=== PATIENT | female | born 1950 | race Two or more races ===

== ENCOUNTER 2017-01-03 20:01 | Inpatient (IN) | payer MEDICARE, MEDICAID ==
[~2017-01-03] VITALS: Ht 149.9 cm; Wt 64.4 kg
[2017-01-03] MEDS ORDERED: ATORVASTATIN CA40 MG ORAL (22:00)
[2017-01-03] MEDS ORDERED: RENA-VITE TABL0.8 M1 PO (22:00)
[2017-01-03] MEDS ORDERED: CALCIUM ACETAT667 MG PO (22:00)
[2017-01-03] MEDS ORDERED: FUROSEMIDE80 M1 ORAL (22:00)
[2017-01-03] MEDS ORDERED: METOPROLOL TART25 MG ORAL (22:00)
[2017-01-03] MEDS ORDERED: AMLODIPINE BESYL5 MG ORAL (22:00)
[2017-01-03] MEDS ORDERED: LISINOPRIL10 MG ORAL (22:00)
[2017-01-03] MEDS ORDERED: FERROUS SULFAT325 MG ORAL (22:00)
[2017-01-03] MEDS ORDERED: ACETAMINOPHEN-1 EAC1 ORAL (22:00)
[2017-01-03 22:05] VITALS: BP 100/47
[2017-01-03 22:09] LABS: MEAN CORPUSCULAR HEMOGLOBIN 30.4 PG (27.0-31.0); MEAN CORPUSCULAR HGB CONC 35.1 G/DL (32.0-36.0); MEAN CORPUSCULAR VOLUME 87 FL (80-99); MEAN PLATELET VOLUME 6.7 FL (6.5-10.1); PLATELET COUNT 322 K/UL (150-450); RED BLOOD COUNT 2.44 M/UL (4.20-5.40); RED CELL DISTRIBUTION WIDTH 15.3 % (11.6-14.8)
[2017-01-03 22:21] LABS: INR 1.1 (0.9-1.1); TROPONIN I < 0.30 ng/mL (<=0.30)
[2017-01-03 22:21] LABS: APPEARANCE,URINE CLOUDY; KETONES,URINE NEGATIVE (NEGATIVE); LEUKOCYTE ESTERASE ,URINE 3+ (NEGATIVE); NITRITE,URINE NEGATIVE (NEGATIVE); PH,URINE 8 (4.5-8.0); PROTEIN,URINE 3+ (NEGATIVE); UROBILINOGEN,URINE NORMAL MG/DL (0.0-1.0)
[2017-01-03 22:24] LABS: ALBUMIN/GLOBULIN RATIO 0.6 (1.0-2.7); CALCIUM 8.1 mg/dL (8.6-10.2); GLOMERULAR FILTRATION RATE 3.1 mL/min (>60); POTASSIUM 3.8 mEQ/L (3.4-4.9); TOTAL PROTEIN 5.8 g/dL (6.6-8.7)
[2017-01-03] MEDS ORDERED: Piperacillin/Tazobactam 3.375 GM in NS 110 ML IVPB ONE (22:30)
[2017-01-03 22:33] LABS: RBC,URINE 0-2 /HPF (0 - 2); WBC,URINE TNTC /HPF (0 - 2)
[2017-01-03 22:34] LABS: BACTERIA,URINE MANY /HPF; SQUAMOUS EPITHELIAL CELL,UR FEW /LPF (NONE/OCC)
[2017-01-03 22:34] LABS: CKMB 5.4 ng/mL (< 3.8)
[2017-01-03] MEDS ORDERED: Zosyn 3.375gm inj ONE (22:37)
--- NOTE | 2017-01-03 23:01 | Emergency Room Report ---
History of Present Illness General Chief Complaint: Syncope Source: Family Member Present Illness HPI 66-year-old female presents ED for evaluation. Family at bedside states that patient been complaining of pain in her legs. Has been there for some time but getting increasingly worse. Family states that patient has poor circulation in both legs, but believes that the left leg is getting worse over the last several days. Denies any fevers or chills. Denies chest pain or shortness of breath. Patient gets peritoneal dialysis at home. No other aggravating or relieving factors. Denies any other associated symptoms Allergies: Coded Allergies: No Known Allergies (Unverified , 01/03/17) Patient History Past Medical History: DM, HTN, renal disease Past Surgical History: none Pertinent Family History: none Social History: Denies: smoking, alcohol use, drug use Now: No Immunizations: UTD Reviewed Nursing Documentation: PMH: Agreed, PSxH: Agreed Nursing Documentation-PMH Hx Cardiac Problems: Yes - Bypass 2014 Hx Hypertension: Yes Hx Pacemaker: Yes Hx Diabetes: Yes Hx Dialysis: Yes - Peritoneal Review of Systems All Other Systems: negative except mentioned in HPI Physical Exam Vital Signs Date Time Temp Pulse Resp B/P (MAP) Pulse Ox O2 Delivery O2 Flow Rate FiO2 01/03/17 19:56 98.1 77 17 101/47 100 Room Air Sp02 EP Interpretation: reviewed, normal General Appearance: no apparent distress, alert, GCS 15, non-toxic Head: normocephalic, atraumatic Eyes: bilateral eye normal inspection, bilateral eye PERRL ENT: hearing grossly normal, normal pharynx, no angioedema, normal voice Neck: full range of motion, supple/symm/no masses Respiratory: chest non-tender, lungs clear, normal breath sounds, speaking full sentences Cardiovascular #1: regular rate, rhythm, no edema Cardiovascular #2: 2+ carotid (R), 2+ carotid (L), 2+ radial (R), 2+ radial (L) , 2+ dorsalis pedis (R), 2+ dorsalis pedis (L) Gastrointestinal: normal bowel sounds, non tender, soft, non-distended, no guarding, no rebound Rectal: deferred Genitourinary: normal inspection, no CVA tenderness Musculoskeletal: back normal, gait/station normal, normal range of motion, tender Neurologic: alert, oriented x3, responsive, motor strength/tone normal, sensory intact, speech normal Psychiatric: judgement/insight normal, memory normal, mood/affect normal, no suicidal/homicidal ideation Reflexes: 3+ bicep (R), 3+ bicep (L), 3+ tricep (R), 3+ tricep (L), 3+ knee (R) , 3+ knee (L) Skin: mottled - LLE Lymphatic: no adenopathy Medical Decision Making Diagnostic Impression: Primary Impression: Peripheral artery disease Additional Impressions: ESRD on peritoneal dialysis Leukocytosis Qualified Codes: D72.829 - Elevated white blood cell count, unspecified Anemia Qualified Codes: N18.6 - End stage renal disease; D63.1 - Anemia in chronic kidney disease; Z99.2 - Dependence on renal dialysis ER Course Hospital Course 66-year-old female presenting to ED with pain to bilateral LEs Differential diagnoses include: sepsis, cellulitis, arterial insufficiency Clinical course Patient placed on stretcher. 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 After initial history and physical, I ordered labs, IV fluids, EKG, chest x-ray, blood cultures, UA. Labs - BUN/Cr markedly elevated, potassium ok, significant leukocytosis, troponins negative EKG - paced rhythm, no acute ischemic changes CXR - cardiomegaly, pacemaker arterial duplex - significant stenosis in bilateral lower extremities. However there is monophasic flow noted Abx given. patient gets peritoneal dialysis at home Case discussed with Dr Tiwari and they agreed to admit patient to their service for further care and support I feel this is a highly complex case requiring extensive working including EKG/ Rhythm strip, Xray/CT/US, Blood/urine lab work, repeat exams while in ED, and administration of strong opiates/narcotics for pain control, admission to hospital or close patient follow up. Diagnosis - peripheral artery disease, ESRD on peritoneal dialysis, leukocyotisis, anemia Patient admitted to floor in stable condition Labs Test 01/03/17 21:40 01/03/17 22:13 White Blood Count 25.0 K/UL (4.8-10.8) Red Blood Count 2.44 M/UL (4.20-5.40) Hemoglobin 7.4 G/DL (12.0-16.0) Hematocrit 21.1 % (37.0-47.0) Mean Corpuscular Volume 87 FL (80-99) Mean Corpuscular Hemoglobin 30.4 PG (27.0-31.0) Mean Corpuscular Hemoglobin Concent 35.1 G/DL (32.0-36.0) Red Cell Distribution Width 15.3 % (11.6-14.8) Platelet Count 322 K/UL (150-450) Mean Platelet Volume 6.7 FL (6.5-10.1) Neutrophils (%) (Auto) % (45.0-75.0) Lymphocytes (%) (Auto) % (20.0-45.0) Monocytes (%) (Auto) % (1.0-10.0) Eosinophils (%) (Auto) % (0.0-3.0) Basophils (%) (Auto) % (0.0-2.0) Prothrombin Time 12.0 SEC (9.30-11.50) Prothromb Time International Ratio 1.1 (0.9-1.1) Activated Partial Thromboplast Time 30 SEC (23-33) Sodium Level 133 mEQ/L (135-145) Potassium Level 3.8 mEQ/L (3.4-4.9) Chloride Level 89 mEQ/L (98-107) Carbon Dioxide Level 24 mEQ/L (20-30) Anion Gap 20 (5-15) Blood Urea Nitrogen 103 mg/dL (7-23) Creatinine 12.0 mg/dL (0.5-0.9) Estimat Glomerular Filtration Rate 3.1 mL/min (>60) Glucose Level 92 mg/dL (74-106) Lactic Acid Level 1.50 mmol/L (0.66-2.22) Calcium Level 8.1 mg/dL (8.6-10.2) Total Bilirubin 0.4 mg/dL (0.0-1.2) Aspartate Amino Transf (AST/SGOT) 38 U/L (5-40) Alanine Aminotransferase (ALT/SGPT) 20 U/L (3-33) Alkaline Phosphatase 95 U/L (35-104) Total Creatine Kinase 246 U/L (26-140) Creatine Kinase MB 5.4 ng/mL (< 3.8) Creatine Kinase MB Relative Index 2.1 Troponin I < 0.30 ng/mL (<=0.30) Total Protein 5.8 g/dL (6.6-8.7) Albumin 2.3 g/dL (3.5-5.2) Globulin 3.5 g/dL Albumin/Globulin Ratio 0.6 (1.0-2.7) Urine Color Yellow Urine Appearance Cloudy Urine pH 8 (4.5-8.0) Urine Specific [place] 1.010 (1.005-1.035) Urine Protein 3+ (NEGATIVE) Urine Glucose (UA) Negative (NEGATIVE) Urine Ketones Negative (NEGATIVE) Urine Occult Blood 5+ (NEGATIVE) Urine Nitrite Negative (NEGATIVE) Urine Bilirubin Negative (NEGATIVE) Urine Urobilinogen Normal MG/DL (0.0-1.0) Urine Leukocyte Esterase 3+ (NEGATIVE) Urine RBC 0-2 /HPF (0 - 2) Urine WBC Tntc /HPF (0 - 2) Urine Squamous Epithelial Cells Few /LPF (NONE/OCC) Urine Bacteria Many /HPF (NONE) EKG Diagnostic Results Rate: normal Rhythm: other - paced ST Segments: no acute changes ASA given to the pt in ED: No Rhythm Strip Diag. Results EP Interpretation: yes Rhythm: no PVC's, no ectopy Chest X-Ray Diagnostic Results Chest X-Ray Diagnostic Results : Chest X-Ray Ordered: Yes # of Views/Limited/Complete: 1 View Indication: Other - weakness EP Interpretation: Yes Interpretation: no pneumothorax, no acute cardiopulmonary disease, other - cardiomegaly. pacemaker Impression: Other - cardiomegaly Interpreting ER Provider: Electronically signed by Ousmane Hancock MD CT/MRI/US Diagnostic Results CT/MRI/US Diagnostic Results : Imaging Test Ordered: arterial duplex Impression signficiant stenosis. monophasic flow noted in bilateral LEs Last Vital Signs Date Time Temp Pulse Resp B/P (MAP) Pulse Ox O2 Delivery O2 Flow Rate FiO2 01/03/17 22:05 98.0 74 17 100/47 97 Room Air Status: improved Disposition: ADMITTED INPATIENT Condition: Serious Referrals: NON PHYSICIAN (PCP) OUSMANE HANCOCK M.D. Jan 03, 2017 23:01
[2017-01-03 23:15] LABS: LYMPHOCYTES % (MANUAL) 7 % (20-45); NEUTROPHILS % (MANUAL) 91 % (45-75); TOTAL CELLS COUNTED 100
[2017-01-03] MEDS ORDERED: Cefepime 1gm vial IM ONE (23:15)
[2017-01-03] MEDS ORDERED: Miralax 17gm pkt ORAL PRN (23:15)
[2017-01-03 23:17] LABS: ANISOCYTOSIS 1+; BAND NEUTROPHILS % (MANUAL) 0 % (0-8); BASOPHILS % (MANUAL) 0 % (0-2); EOSINOPHILS % (MANUAL) 0 % (0-3); PLATELET ESTIMATE ADEQUATE; POLYCHROMASIA 1+
[2017-01-03 23:18] LABS: PLATELET MORPHOLOGY NORMAL
[2017-01-03 23:38] VITALS: BP 98/49
[2017-01-04] VITALS (7 sets, daily range): BP systolic 91–115; BP diastolic 49–58
[2017-01-04] MEDS ORDERED: Vancomycin 1250mg/D5W 250ml IVPB ONE (02:00)
--- NOTE | 2017-01-04 02:51 | Wound Care Consultation ---
Wound Assessment Wound Assessment #1: Wound Number: 1 Wound Present on Admission: Yes New Wound: No Status Change of Wound: No Wound Location Body Site Modif: right Wound Location Body Site: ischial tuberosity - That extending to right buttock Wound Type: pressure ulcer Bette Test: Does not Bette Pressure Ulcer Stage: IV/unstageable Wound Thickness: Full Thickness Wound Length: 6.5 Wound Width: 4.5 Wound Depth: utd Percent of Wound [place]/Red: 50 Percent of Wound Bed Yellow/Wh: 50 Wound Drainage Description: Serosanguineous Wound Drainage Amount: Scant Wound Drainage Odor: None/Absent Tissue Surrounding Wound: Macerated Wound General Appearance: Draining, Necrotic Wound Assessment #2: Wound Number: 2 Wound Present on Admission: Yes New Wound: No Status Change of Wound: No Wound Location Body Site Modif: mid Wound Location Body Site: sacral Wound Type: pressure ulcer Bette Test: Does not Bette Pressure Ulcer Stage: II - scattered Wound Thickness: Partial Thickness Wound Length: 4.5 Wound Width: 4.5 Wound Depth: less than 0.1 Percent of Wound [place]/Red: 100 Wound Drainage Description: Serosanguineous Wound Drainage Amount: Scant Wound Drainage Odor: None/Absent Tissue Surrounding Wound: Erythemic Wound General Appearance: Reddened, Draining Wound Assessment #3: Wound Number: 3 Wound Present on Admission: Yes New Wound: No Status Change of Wound: No Wound Location Body Site Modif: left Wound Location Body Site: buttocks Wound Type: pressure ulcer Bette Test: Does not Bette Pressure Ulcer Stage: II Wound Thickness: Partial Thickness Wound Length: 1.5 Wound Width: 1.5 Wound Depth: less than 0.1 Percent of Wound [place]/Red: 100 Wound Drainage Description: Serosanguineous Wound Drainage Amount: Scant Wound Drainage Odor: None/Absent Tissue Surrounding Wound: Erythemic Wound General Appearance: Reddened, Draining Wound Assessment #4: Wound Number: 4 Wound Present on Admission: Yes New Wound: No Status Change of Wound: No Wound Location Body Site Modif: right, lower, lateral Wound Location Body Site: leg Wound Type: vascular wound Bette Test: Does not Bette Wound Thickness: Full Thickness Wound Length: 16.5 Wound Width: 5.5 Wound Depth: utd Percent of Wound Black/Brown: 100 Wound Drainage Description: Serosanguineous Wound Drainage Amount: Scant Wound Drainage Odor: None/Absent Tissue Surrounding Wound: Macerated Wound General Appearance: Blackened, Draining Wound Assessment #5: Wound Number: 5 Wound Present on Admission: Yes New Wound: No Status Change of Wound: No Wound Location Body Site Modif: left, lateral Wound Location Body Site: heel Wound Type: pressure ulcer Bette Test: Does not Bette Pressure Ulcer Stage: IV/unstageable Wound Thickness: Full Thickness Wound Length: 3.0 Wound Width: 3.5 Wound Depth: utd Percent of Wound Black/Brown: 100 Wound Drainage Description: Serosanguineous Wound Drainage Amount: Scant Wound Drainage Odor: None/Absent Tissue Surrounding Wound: Erythemic Wound General Appearance: Draining Wound Assessment #6: Wound Number: 6 Wound Present on Admission: Yes New Wound: No Status Change of Wound: No Wound Location Body Site Modif: other - jeneralized Wound Type: scab - and scars Bette Test: Does not Bette Wound Thickness: Full Thickness Wound Comment #1 Right ischial tuberosity unstageable pressure ulcer that extended to right buttock #2 Sacral scattered stage II pressure ulcer #3 Left buttock stage II pressure ulcer #4 Right lateral lower leg open wound with black eschar adhered to wound bed #5 Left lateral heel unstageable pressure ulcer #6 Generalized dry scabs and scars Recommendation -Right ischial tuberosity unstageable pressure ulcer that extended to right buttock, Sacral scattered stage II pressure ulcer and Left buttock stage II pressure ulcer, Cleanse with saline pat, dry apply Triad cream to sacral area, left and right buttock, apply Therahoney gel to right ischial tuberosity, cover with Biatain silicone drg daily and PRN soiled/dislodged -Right lateral lower leg open wound with black eschar adhered to wound bed, Cleanse with saline, pat dry, pint with Betadine, apply adaptic, cover with 4x4 , wrap with Kerlix daily and PRN soiled/dislodged -Left lateral heel unstageable pressure ulcer, Cleanse with saline, pat dry, apply skin barrier film to periwound area, apply Therahoney gel to wound bed, cover with 4x4, wrap with Kerlix daily and PRN soiled/dislodged -Turn and reposition -Keep clean and dry -Optimize nutrition -Low air loss mattress -Offload both heels -Heel protector on both heels -Assess and f/u accordingly for any changes JAYLON GORE RN Jan 04, 2017 02:51
[2017-01-04 06:50] LABS: MEAN CORPUSCULAR HGB CONC 33.8 G/DL (32.0-36.0); MEAN CORPUSCULAR VOLUME 86 FL (80-99); MEAN PLATELET VOLUME 6.4 FL (6.5-10.1); PLATELET COUNT 291 K/UL (150-450); RED BLOOD COUNT 2.96 M/UL (4.20-5.40); RED CELL DISTRIBUTION WIDTH 14.3 % (11.6-14.8)
[2017-01-04 07:12] LABS: ALBUMIN/GLOBULIN RATIO 0.6 (1.0-2.7); CALCIUM 7.8 mg/dL (8.6-10.2); CREATININE 12.2 mg/dL (0.5-0.9); GLOMERULAR FILTRATION RATE 3.1 mL/min (>60); POTASSIUM 3.7 mEQ/L (3.4-4.9); TOTAL PROTEIN 5.6 g/dL (6.6-8.7)
[2017-01-04 07:23] LABS: PHOSPHORUS 5.5 mg/dL (2.5-4.8)
[2017-01-04 08:36] LABS: BAND NEUTROPHILS % (MANUAL) 0 % (0-8); BASOPHILS % (MANUAL) 0 % (0-2); EOSINOPHILS % (MANUAL) 1 % (0-3); HYPOCHROMASIA 1+; LYMPHOCYTES % (MANUAL) 6 % (20-45); NEUTROPHILS % (MANUAL) 88 % (45-75); PLATELET ESTIMATE ADEQUATE; PLATELET MORPHOLOGY NORMAL; TOTAL CELLS COUNTED 100
[2017-01-04] MEDS: Metoprolol 25mg tab ORAL SCH ×2 (08:47→20:50)
[2017-01-04] MEDS: Tylenol #3 tab (300mg/30mg) ORAL SCH ×3 (08:49→18:56)
[2017-01-04] MEDS: Nephrovite tab (Rena-Vite) ORAL SCH (08:49)
[2017-01-04] MEDS: Furosemide 40mg tab ORAL SCH (08:49)
[2017-01-04] MEDS: Cefepime HCl 0.5 GM in D5W 55 ML IVPB SCH (10:39)
--- NOTE | 2017-01-04 12:29 | Cardiology Report ---
APPROVED REPORT EKG Measurement Heart [id number] Abnormal ECG Dual-Chamber Pacemaker
[2017-01-04] MEDS: Sensipar 30mg Tab ORAL SCH (15:10)
[2017-01-04] MEDS ORDERED: Tubing IV Secondary IV ONE (16:06)
[2017-01-04] MEDS: Heparin 5000 units/ml inj SUBQ SCH (20:47)
[2017-01-05] VITALS (7 sets, daily range): BP systolic 86–135; BP diastolic 42–79
--- NOTE | 2017-01-05 00:15 | History and Physical Report ---
DATE OF ADMISSION: 01/03/2017 CHIEF COMPLAINT AND REASON FOR HOSPITALIZATION: The patient is a 66-year-old lady with insulin-dependent diabetes, end-stage renal disease, skin necrosis on the legs, and failure to thrive. HISTORY OF PRESENT ILLNESS: The patient lives at home and gets peritoneal dialysis at home under the care of a physician at [facility]. There is history of coronary artery disease and insulin-dependent diabetes. She had hemodialysis for six months and has been on peritoneal dialysis since 2014. Over the past few weeks, she has been weaker and having skin necrosis on the legs and a large area of skin necrosis on the left leg. She also has generalized excoriation and picks on her skin. She has been weak, somewhat more short of breath, eating poorly, and failing at home. Family called the paramedics and brought her to our emergency room. She has not been at this hospital before. PAST SURGICAL HISTORY: Coronary artery bypass surgery in 2014, pacemaker, peritoneal dialysis catheter, and prior hemodialysis catheter. 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 HOME MEDICATIONS: Include Levemir 10 mg daily, baby aspirin daily, Radha-Wyatt one daily, calcium acetate one tablet t.i.d., calcitriol one tablet daily, furosemide 80 mg daily, amlodipine one pill daily, lisinopril 10 mg daily, and metoprolol 25 mg daily. ALLERGIES: None known. HABITS: She is a nondrinker. She is a nonsmoker. SOCIAL HISTORY: She lives at home. SYSTEM REVIEW: HEENT: She may have had an eye procedure in [facility] about six or seven years ago, possibly for diabetic nephropathy. Vision is stable, but somewhat diminished. Hearing is good. ENDOCRINE: Longstanding diabetes, but she has only been on insulin for about a year. No known thyroid disease. PULMONARY: No chronic cough, asthma, or TB, but she is short of breath lately. CARDIAC: Prior [place] and pacemaker. No recent chest pain. No fluid overload. GASTROINTESTINAL: No ulcers or GI bleeding. She has diarrhea about two times a week for several months. GENITOURINARY: She makes little urine. No dysuria or hematuria. NEUROLOGIC: She has had progressive memory loss and is in generalized weaker. ONCOLOGIC: No history of any cancer. PHYSICAL EXAMINATION: GENERAL: The patient is a chronically ill-appearing lady, lying in bed. She looks weak and keeps her eyes closed during much of the exam. VITAL SIGNS: Temperature 97.6 degrees, pulse 61, respirations 20, and blood pressure 109/52. HEENT: Sclerae nonicteric. Ocular motion intact in all directions. Oral mucosa, no lesions. NECK: No adenopathy. LUNGS: Clear. HEART: Regular rhythm. No murmur. ABDOMEN: Soft without organomegaly or masses. Peritoneal dialysis catheter is in good position. No focal abdominal tenderness. EXTREMITIES: No edema. No definite cyanosis. I am unable to feel pedal pulses. SKIN: She has sacral decubitus likely stage II on the buttocks. She has a large area of skin necrosis on the right leg and she has excoriations allover her body. PERTINENT LABORATORY DATA: White count 25,000 and repeat 17,000; hemoglobin 7.4 and repeat 8.6. BUN 107, creatinine 12.2, calcium 7.8, phosphorus 5.5, and albumin 2.1. Urine shows too numerous to count white cells. IMPRESSION: The patient has failure to thrive. 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 She has high BUN despite dialysis and she has missed some peritoneal dialysis treatments and she may be failing peritoneal dialysis. She has low serum albumin, anemia, severe weakness. Her condition requires multidiscipline approach with more aggressive dialysis, possible surgeries to debride skin, and vascular evaluation. She is a complex case. I have discussed this with the patient's daughter and possibilities include sending her back to her prior providers, initiating treatment here in view of her leukocytosis, or possible transfer to a tertiary center such as [facility] for more involved care. The family will consider options and I will discuss further treatment plan. Her condition is serious and will require prolonged course of therapy. Jeffy Tiwari M.D. DR: Mario JOB#: [id number] CC: ROMINA
[2017-01-05 07:12] LABS: MEAN CORPUSCULAR HEMOGLOBIN 29.9 PG (27.0-31.0); MEAN CORPUSCULAR HGB CONC 34.1 G/DL (32.0-36.0); MEAN CORPUSCULAR VOLUME 88 FL (80-99); MEAN PLATELET VOLUME 6.6 FL (6.5-10.1); PLATELET COUNT 308 K/UL (150-450); RED BLOOD COUNT 3.16 M/UL (4.20-5.40); RED CELL DISTRIBUTION WIDTH 14.7 % (11.6-14.8); WHITE BLOOD COUNT 15.4 K/UL (4.8-10.8)
[2017-01-05 07:45] LABS: CALCIUM 8.1 mg/dL (8.6-10.2); CREATININE 10.7 mg/dL (0.5-0.9); GLOMERULAR FILTRATION RATE 3.6 mL/min (>60); PHOSPHORUS 5.5 mg/dL (2.5-4.8); POTASSIUM 3.4 mEQ/L (3.4-4.9)
[2017-01-05 07:58] LABS: THYROID STIMULATING HORMONE 3.99 uIU/mL (0.300-4.500)
[2017-01-05] MEDS: Metoprolol 25mg tab ORAL SCH ×2 (09:00→21:00)
[2017-01-05 09:28] LABS: ANISOCYTOSIS 1+; BAND NEUTROPHILS % (MANUAL) 0 % (0-8); BASOPHILS % (MANUAL) 0 % (0-2); BURR CELLS OCCASIONAL; EOSINOPHILS % (MANUAL) 0 % (0-3); HYPOCHROMASIA 1+; LYMPHOCYTES % (MANUAL) 4 % (20-45); NEUTROPHILS % (MANUAL) 88 % (45-75); PLATELET ESTIMATE ADEQUATE; PLATELET MORPHOLOGY NORMAL; TOTAL CELLS COUNTED 100
--- NOTE | 2017-01-05 09:31 | Diagnostic Imaging Report ---
Indication: Dizziness and vertigo Technique: One view of the chest Comparison: none Findings: The heart is enlarged. There is minimal generalized interstitial congestion, possible left costophrenic angle blunting. There is a left chest pacemaker. Evidence of prior CABG Impression: Equivocal mild congestive heart failure changes Equivocal small left pleural effusion Cardiomegaly This agrees with the preliminary interpretation provided overnight by [facility] teleradiology service.
[2017-01-05 09:39] LABS: IONIZED CALCIUM 0.94 mmol/L (1.10-1.35)
[2017-01-05] MEDS: Furosemide 40mg tab ORAL SCH (09:52)
[2017-01-05] MEDS: Sensipar 30mg Tab ORAL SCH (09:53)
[2017-01-05] MEDS: Nephrovite tab (Rena-Vite) ORAL SCH (09:53)
[2017-01-05] MEDS: Tylenol #3 tab (300mg/30mg) ORAL SCH ×3 (09:53→17:23)
[2017-01-05] MEDS: Heparin 5000 units/ml inj SUBQ SCH ×2 (09:54→21:15)
[2017-01-05] MEDS: Cefepime HCl 0.5 GM in D5W 55 ML IVPB SCH (10:58)
--- NOTE | 2017-01-05 13:17 | Nephrology Progress Note ---
Assessment/Plan Problem List: (1) Hyperparathyroidism due to end stage renal disease on dialysis (2) Depression (3) IDDM (insulin dependent diabetes mellitus) (4) Malnutrition of moderate degree (5) Skin necrosis (6) Sacral decubitus ulcer, stage II (7) Calciphylaxis (8) ESRD on peritoneal dialysis (9) Leukocytosis (10) Peripheral artery disease Plan ongoing PD around the clock, family performing, sensipar, Vasc eval, remeron, megace, wound care Subjective Constitutional: Reports: weakness HEENT: Reports: no symptoms Genitourinary: Reports: incontinence Neurologic/Psychiatric: Reports: depressed, weakness Subjective pruritus, leg pain Objective Objective Last 24 Hour Vital Signs Date Time Temp Pulse Resp B/P (MAP) Pulse Ox O2 Delivery O2 Flow Rate FiO2 01/05/17 12:03 98.3 63 20 96/50 97 Room Air 01/05/17 10:52 97.3 01/05/17 09:00 65 115/62 01/05/17 08:15 97.6 63 19 99/56 96 Room Air 01/05/17 04:00 97.3 65 21 115/62 97 Room Air 01/05/17 00:00 97.5 56 20 88/55 100 Room Air 01/04/17 21:00 97.6 63 20 91/55 100 Room Air 01/04/17 20:50 63 91/55 01/04/17 20:00 97.6 63 20 91/55 100 Room Air 01/04/17 16:00 97.4 61 18 101/49 92 Room Air Laboratory Tests 01/05/17 05:50: White Blood Count 15.4H, Red Blood Count 3.16L, Hemoglobin 9.4L, Hematocrit 27.7L, Mean Corpuscular Volume 88, Mean Corpuscular Hemoglobin 29.9, Mean Corpuscular Hemoglobin Concent 34.1, Red Cell Distribution Width 14.7, Platelet Count 308, Mean Platelet Volume 6.6, Neutrophils (%) (Auto) , Lymphocytes (%) ( Auto) , Monocytes (%) (Auto) , Eosinophils (%) (Auto) , Basophils (%) (Auto) , Differential Total Cells Counted 100, Neutrophils % (Manual) 88H, Lymphocytes % (Manual) 4L, Monocytes % (Manual) 8, Eosinophils % (Manual) 0, Basophils % ( Manual) 0, Band Neutrophils 0, Platelet Estimate Adequate, Platelet Morphology Normal, Hypochromasia 1+, Anisocytosis 1+, Neihart Cells Occasional, Sodium Level 132L, Potassium Level 3.4, Chloride Level 87L, Carbon Dioxide Level 22, Anion Gap 23H, Blood Urea Nitrogen 93H, Creatinine 10.7H, Estimat Glomerular Filtration Rate 3.6, Glucose Level 360#H, Calcium Level 8.1L, Calcium (Send out ) [Pending], Ionized Calcium (Measured) 0.94L, Phosphorus Level 5.5H, Thyroid Stimulating Hormone (TSH) 3.990, Parathyroid Hormone (Intact) [Pending], Hepatitis B Surface Antigen [Pending], Hepatitis B Surface Antibody [Pending], Hepatitis C Antibody [Pending], HIV (1&2) Antibody Rapid Negative Height (Feet): 4 Height (Inches): 11.00 Weight (Pounds): 142 General Appearance: lethargic, mild distress EENT: normal ENT inspection Neck: non-tender, normal alignment Cardiovascular: normal rate, regular rhythm Respiratory/Chest: lungs clear, normal breath sounds Abdomen: non tender, soft, other - pd cath ok Extremities: other - absent pedal pulses 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
[2017-01-05] MEDS: Megace 400mg/10ml Susp ORAL SCH (15:51)
[2017-01-05] MEDS: Norco 7.5mg/325mg tab ORAL PRN ×2 (15:56→21:14)
--- NOTE | 2017-01-05 16:50 | Diagnostic Imaging Report ---
APPROVED REPORT CPT Code: 53690 Symptoms Rest Pain : Bilaterally PAD Comments: Hx left calf ulcer. Risk Factors History of lower extremity PAD: Bilaterally Hypertension: Cardiac Disease Diabetes VELOCITY MEASUREMENTS AND DOPPLER WAVEFORM ANALYSIS RIGHTcm/secWaveformSeverityLEFTcm/secWaveformSeverity Com Fem Art. 71MonophasicModerate 50-75%Com Fem Art. 61MonophasicModerate 50-75% Fem Art Prox. 43MonophasicModerate 50-75%Fem Art Prox. 76MonophasicModerate 50-75% Fem Art Mid. 65MonophasicModerate 50-75%Fem Art Mid. 76MonophasicModerate 50-75% Fem Art Dist. 46MonophasicModerate 50-75%Fem Art Dist. 66MonophasicModerate 50-75% Pop Art Prox. 41MonophasicModerate 50-75%Pop Art Prox. 58MonophasicModerate 50-75% CATHODE WASHER Prox. 53MonophasicModerate 50-75%CATHODE WASHER Prox. 41MonophasicModerate 50-75% CATHODE WASHER Mid. CATHODE WASHER Mid. 20MonophasicModerate 50-75% CATHODE WASHER Dist. CATHODE WASHER Dist. 25MonophasicModerate 50-75% SENG Prox. 46MonophasicModerate 50-75%SENG Prox. 89MonophasicModerate 50-75% SENG Dist. 31MonophasicModerate 50-75%SENG Dist. 39MonophasicModerate 50-75% RIGHT LEG: Common femoral artery waveform analysis is within normal limits at rest. Color flow duplex sonography reveals moderate calcification throughout the superficial femoral, popliteal and tibial arteries. There is no evidence of occlusion within these segments. The tibioperoneal trunk was not visualized. The posterior tibial, anterior tibial and dorsalis pedis arteries are moderately calcified. The Doppler tibial artery waveform analysis is compatible with moderate to severe ischemia at rest. LEFT LEG: Common femoral artery waveform analysis is within normal limits at rest. Color flow duplex sonography reveals moderate calcification throughout the superficial femoral, popliteal and tibial arteries. The tibioperoneal trunk was not visualized. There is a mild (50% - 70%) stenosis at the proximal posterior tibial artery. There is no evidence of occlusion within these segments. The posterior tibial, anterior tibial and dorsalis pedis arteries are moderately calcified. The Doppler tibial artery waveform analysis is compatible with moderate to severe ischemia at rest. Incidental finding: Left distal thigh palpable area with visible bruising. Echogenic area and edema noted within the underlying tissue. The superficial femoral artery and the superficial femoral vein posterior to the tissue are patent. Dr. Hancock was informed of abnormal results at 21:57 hrs.
--- NOTE | 2017-01-05 16:59 | Consultation ---
Consult Note Consult Note Pt with multiple medical problems including ESRD, DM, PVD, CAD, presents with non-healing ulcers of LE's and uremia despite PD. PMH/ROS/Hosp. course noted. Exam -- lethargic, NAD; AVSS; cor RRR; lungs CTA; abd soft, PD cath site C&D; Extr. with multiple diffuse small superficial scabs on arms and legs, larger ulcers noted in RLE, feet warm but no palpable pedal pulses and weak femoral pulses, no gangrene. Labs/imaging reviewed Assessment/Plan Non-healing of LE ulcers in setting of likely calciphylaxis, PVD, DM, ESRD -- agree with local wound care, abx -- additional non-invasive vascular studies ordered -- will likely require angiogram and revascularization once clinically optimized and cleared for procedure -- vein mapping of arms pending to assess potential for HD access, if and when necessary per nephrology -- cont. heparin Plans discussed with pt, family, sales representative, RYAN, RN. PADDY RICHARDS Jan 05, 2017 16:59
[2017-01-05] MEDS: NovoLOG Insulin Flexpen SUBQ SCH ×2 (17:26→21:16)
[2017-01-06] VITALS (8 sets, daily range): BP systolic 82–103; BP diastolic 38–64
[2017-01-06] MEDS: Norco 7.5mg/325mg tab ORAL PRN (05:33)
[2017-01-06] MEDS: NovoLOG Insulin Flexpen SUBQ SCH ×4 (06:08→21:37)
[2017-01-06 06:52] LABS: BASOPHILS % (AUTO) 0.7 % (0.0-2.0); EOSINOPHILS % (AUTO) 2.7 % (0.0-3.0); LYMPHOCYTES % (AUTO) 7.6 % (20.0-45.0); MEAN CORPUSCULAR HEMOGLOBIN 28.7 PG (27.0-31.0); MEAN CORPUSCULAR HGB CONC 32.8 G/DL (32.0-36.0); MEAN CORPUSCULAR VOLUME 88 FL (80-99); MEAN PLATELET VOLUME 6.8 FL (6.5-10.1); MONOCYTES % (AUTO) 7.9 % (1.0-10.0); NEUTROPHILS % (AUTO) 81.2 % (45.0-75.0); PLATELET COUNT 278 K/UL (150-450); RED BLOOD COUNT 3.06 M/UL (4.20-5.40); RED CELL DISTRIBUTION WIDTH 15.1 % (11.6-14.8); WHITE BLOOD COUNT 16.4 K/UL (4.8-10.8)
[2017-01-06 07:06] LABS: ALBUMIN/GLOBULIN RATIO 0.6 (1.0-2.7); CALCIUM 7.1 mg/dL (8.6-10.2); CREATININE 8.8 mg/dL (0.5-0.9); GLOMERULAR FILTRATION RATE 4.5 mL/min (>60); POTASSIUM 3.3 mEQ/L (3.4-4.9); TOTAL PROTEIN 4.8 g/dL (6.6-8.7)
[2017-01-06] MEDS: Metoprolol 25mg tab ORAL SCH ×2 (08:52→20:55)
[2017-01-06] MEDS: Furosemide 40mg tab ORAL SCH ×2 (09:00→09:07)
[2017-01-06] MEDS: Tylenol #3 tab (300mg/30mg) ORAL SCH ×3 (09:07→18:04)
[2017-01-06] MEDS: Sensipar 30mg Tab ORAL SCH (09:07)
[2017-01-06] MEDS: Nephrovite tab (Rena-Vite) ORAL SCH (09:07)
[2017-01-06] MEDS: Megace 400mg/10ml Susp ORAL SCH ×2 (09:08→18:04)
[2017-01-06] MEDS: Heparin 5000 units/ml inj SUBQ SCH ×2 (09:09→21:39)
[2017-01-06] MEDS: Cefepime HCl 0.5 GM in D5W 55 ML IVPB SCH (10:00)
--- NOTE | 2017-01-06 10:49 | Nephrology Progress Note ---
Assessment/Plan Problem List: (1) Hyperparathyroidism due to end stage renal disease on dialysis (2) Depression (3) IDDM (insulin dependent diabetes mellitus) (4) Malnutrition of moderate degree (5) Skin necrosis (6) Sacral decubitus ulcer, stage II (7) Calciphylaxis (8) ESRD on peritoneal dialysis (9) Leukocytosis (10) Peripheral artery disease Plan ongoing PD around the clock, family performing, sensipar, Vasc eval, remeron, megace, wound care continue iv antibiotics Subjective Constitutional: Reports: weakness HEENT: Reports: no symptoms Genitourinary: Reports: incontinence Neurologic/Psychiatric: Reports: pre-existing deficit Subjective pruritus, leg pain Objective Objective Last 24 Hour Vital Signs Date Time Temp Pulse Resp B/P (MAP) Pulse Ox O2 Delivery O2 Flow Rate FiO2 01/06/17 08:52 68 98/43 01/06/17 08:00 97.6 68 21 98/43 96 Room Air 01/06/17 06:32 98.1 01/06/17 04:00 98.1 67 20 98/51 99 Room Air 01/06/17 02:42 65 90/50 01/06/17 00:00 98.2 63 20 88/64 98 Room Air 01/05/17 21:00 62 102/56 01/05/17 20:56 62 102/56 01/05/17 20:00 97.3 60 20 86/42 100 Room Air 01/05/17 18:22 97.7 01/05/17 15:45 97.7 61 19 135/79 98 Room Air 01/05/17 12:03 98.3 63 20 96/50 97 Room Air Intake and Output 01/06/17 01/07/17 19:00 07:00 Intake Total 120 ml Balance 120 ml Intake Oral 120 ml Laboratory Tests 01/06/17 04:45: White Blood Count 16.4H, Red Blood Count 3.06L, Hemoglobin 8.8L, Hematocrit 26.8L, Mean Corpuscular Volume 88, Mean Corpuscular Hemoglobin 28.7, Mean Corpuscular Hemoglobin Concent 32.8, Red Cell Distribution Width 15.1H, Platelet Count 278, Mean Platelet Volume 6.8, Neutrophils (%) (Auto) 81.2H, Lymphocytes (%) (Auto) 7.6L, Monocytes (%) (Auto) 7.9, Eosinophils (%) (Auto) 2.7, Basophils (%) (Auto) 0.7, Sodium Level 131L, Potassium Level 3.3L, Chloride Level 89L, Carbon Dioxide Level 25, Anion Gap 17H, Blood Urea Nitrogen 72H, Creatinine 8.8H, Estimat Glomerular Filtration Rate 4.5, Glucose Level 95# , Calcium Level 7.1L, Phosphorus Level 4.0, Total Bilirubin 0.3, Aspartate Amino Transf (AST/SGOT) 25, Alanine Aminotransferase (ALT/SGPT) 16, Alkaline Phosphatase 90, Total Creatine Kinase 155H, Total Protein 4.8L, Albumin 1.9L, Globulin 2.9, Albumin/Globulin Ratio 0.6L, Random Vancomycin Level 16.7 Height (Feet): 4 Height (Inches): 11.00 Weight (Pounds): 142 General Appearance: no apparent distress, alert EENT: normal ENT inspection Neck: non-tender, normal alignment Cardiovascular: normal rate, regular rhythm Respiratory/Chest: lungs clear, normal breath sounds Abdomen: non tender, soft, no organomegaly Neurologic: brush filler hand II-XII grossly normal Objective skin necrosis r leg, generalized excoriations, sacral decubitus TYLOR BUTLER Jan 06, 2017 10:49
[2017-01-06] MEDS ORDERED: Potassium Chloride 40 MEQ in 1/2 NS 1000ml 1,000 ML IV SCH (11:45)
[2017-01-06] MEDS ORDERED: SODIUM THIOSULFATE 12.5 GM/50 ML IV ONE (14:00)
[2017-01-06] MEDS ORDERED: SODIUM THIOSULFATE IVPB ONE (14:00)
[2017-01-06] MEDS ORDERED: 1/2 NS 1000ml IV ONE (15:58)
[2017-01-06] MEDS: Potassium Chloride 40 MEQ in 1/2 NS 1000ml 1,000 ML IV SCH (18:13)
[2017-01-06] MEDS ORDERED: Epogen (for ESRD on dialysis) SUBQ SCH (21:00)
[2017-01-07] VITALS (7 sets, daily range): BP systolic 97–121; BP diastolic 50–63
[2017-01-07] MEDS: Potassium Chloride 40 MEQ in 1/2 NS 1000ml 1,000 ML IV SCH (03:48)
[2017-01-07] MEDS: NovoLOG Insulin Flexpen SUBQ SCH ×4 (06:03→20:49)
[2017-01-07 06:59] LABS: MEAN CORPUSCULAR HEMOGLOBIN 30.1 PG (27.0-31.0); MEAN CORPUSCULAR HGB CONC 34.7 G/DL (32.0-36.0); MEAN CORPUSCULAR VOLUME 87 FL (80-99); MEAN PLATELET VOLUME 7.4 FL (6.5-10.1); PLATELET COUNT 353 K/UL (150-450); RED BLOOD COUNT 3.62 M/UL (4.20-5.40); RED CELL DISTRIBUTION WIDTH 14.8 % (11.6-14.8)
[2017-01-07 07:06] LABS: CREATININE 7.7 mg/dL (0.5-0.9); GLOMERULAR FILTRATION RATE 5.3 mL/min (>60); PHOSPHORUS 3.1 mg/dL (2.5-4.8); POTASSIUM 3.7 mEQ/L (3.4-4.9)
[2017-01-07 08:04] LABS: BAND NEUTROPHILS % (MANUAL) 0 % (0-8); BASOPHILS % (MANUAL) 0 % (0-2); EOSINOPHILS % (MANUAL) 1 % (0-3); LYMPHOCYTES % (MANUAL) 5 % (20-45); NEUTROPHILS % (MANUAL) 88 % (45-75); PLATELET ESTIMATE ADEQUATE; PLATELET MORPHOLOGY NORMAL; TOTAL CELLS COUNTED 100
[2017-01-07 08:06] LABS: BURR CELLS 1+
[2017-01-07 08:08] LABS: POIKILOCYTOSIS 1+
[2017-01-07] MEDS: Metoprolol 25mg tab ORAL SCH ×2 (09:00→20:48)
[2017-01-07] MEDS: Tylenol #3 tab (300mg/30mg) ORAL SCH ×3 (09:29→18:03)
[2017-01-07] MEDS: Furosemide 40mg tab ORAL SCH (09:29)
[2017-01-07] MEDS: Sensipar 30mg Tab ORAL SCH (09:29)
[2017-01-07] MEDS: Megace 400mg/10ml Susp ORAL SCH ×2 (09:29→18:03)
[2017-01-07] MEDS: Nephrovite tab (Rena-Vite) ORAL SCH (09:30)
[2017-01-07] MEDS: Heparin 5000 units/ml inj SUBQ SCH ×2 (09:31→20:49)
[2017-01-07] MEDS ORDERED: SODIUM THIOSULFATE 12.5 GM/50 ML IV ONE (09:43)
[2017-01-07] MEDS: Cefepime HCl 0.5 GM in D5W 55 ML IVPB SCH (10:45)
--- NOTE | 2017-01-07 13:46 | Nephrology Progress Note ---
Assessment/Plan Problem List: (1) Hyperparathyroidism due to end stage renal disease on dialysis (2) Depression (3) IDDM (insulin dependent diabetes mellitus) (4) Malnutrition of moderate degree (5) Skin necrosis (6) Sacral decubitus ulcer, stage II (7) Calciphylaxis (8) ESRD on peritoneal dialysis (9) Leukocytosis (10) Peripheral artery disease Plan ongoing PD around the clock, family performing, sensipar, Vasc eval, remeron, megace, wound care continue iv antibiotics, wbc to 25K, low bp 9/4 better with iv fluids, to discuss further with family Subjective Constitutional: Reports: weakness HEENT: Reports: no symptoms Genitourinary: Reports: incontinence Neurologic/Psychiatric: Reports: pre-existing deficit Subjective pruritus, leg pain Objective Objective Last 24 Hour Vital Signs Date Time Temp Pulse Resp B/P (MAP) Pulse Ox O2 Delivery O2 Flow Rate FiO2 01/07/17 12:00 96.8 75 20 106/50 98 Room Air 01/07/17 09:00 74 115/63 01/07/17 08:00 97.0 74 20 115/63 100 Room Air 01/07/17 03:58 97.0 74 18 121/53 97 Room Air 01/07/17 00:00 97.4 71 18 97/55 95 Room Air 01/06/17 20:55 66 95/55 01/06/17 20:00 97.2 66 18 95/55 100 Room Air 01/06/17 18:04 70 103/50 01/06/17 16:53 97.3 69 19 82/38 100 Room Air Intake and Output 01/07/17 01/08/17 19:00 07:00 Intake Total 455 ml Balance 455 ml IV Total 455 ml Laboratory Tests 01/07/17 05:50: White Blood Count 25.0#*H, Red Blood Count 3.62L, Hemoglobin 10.9L, Hematocrit 31.4L, Mean Corpuscular Volume 87, Mean Corpuscular Hemoglobin 30.1, Mean Corpuscular Hemoglobin Concent 34.7, Red Cell Distribution Width 14.8, Platelet Count 353, Mean Platelet Volume 7.4, Neutrophils (%) (Auto) , Lymphocytes (%) ( Auto) , Monocytes (%) (Auto) , Eosinophils (%) (Auto) , Basophils (%) (Auto) , Differential Total Cells Counted 100, Neutrophils % (Manual) 88H, Lymphocytes % (Manual) 5L, Monocytes % (Manual) 6, Eosinophils % (Manual) 1, Basophils % ( Manual) 0, Band Neutrophils 0, Platelet Estimate Adequate, Platelet Morphology Normal, Poikilocytosis 1+, Beck Cells 1+, Sodium Level 131L, Potassium Level 3.7 , Chloride Level 85L, Carbon Dioxide Level 19L, Anion Gap 27H, Blood Urea Nitrogen 63H, Creatinine 7.7H, Estimat Glomerular Filtration Rate 5.3, Glucose Level 153H, Calcium Level 8.0L, Phosphorus Level 3.1 Height (Feet): 4 Height (Inches): 11.00 Weight (Pounds): 142 General Appearance: no apparent distress, alert EENT: normal ENT inspection Neck: normal alignment Cardiovascular: regular rhythm Respiratory/Chest: lungs clear, normal breath sounds Abdomen: non tender, soft Extremities: other - no edema 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
[2017-01-07] MEDS ORDERED: Potassium Chloride 40 MEQ in 1/2 NS 1000ml 1,000 ML IV SCH (15:00)
--- NOTE | 2017-01-07 15:12 | Infectious Diseases Prog Note ---
Assessment/Plan Assessment/Plan Full consult dictated: A) 1) right leg multiple wound/ulcer infections with ischemia, sepsis, leukocytosis, FTT 2) chest x-ray chf, uc likely not significant, no diarrhea to suggest c.diff. , blood cultures negative 3) esrd, peritoneal dialysis, cad, pacemaker, dm, anemia, htn 4) allergies - negative, fh-nc, sh-negative, mar noted, notes and records reviewed 5) d/w RN P) 1) vancomycin, cefepime, flagyl added for anaerobic coverage 2) check labs, debridement if needed per surgery 3) once leukocytosis improving then can consider hd access 4) continue treatment per Dr. Tiwari and consultants 5) wound care per protocol 6) vascular surgery w/u 7) d/w Dr. Tiwari 8) thank you Subjective Allergies: Coded Allergies: No Known Allergies (Unverified , 01/03/17) Objective Vital Signs Last 24 Hour Vital Signs Date Time Temp Pulse Resp B/P (MAP) Pulse Ox O2 Delivery O2 Flow Rate FiO2 01/07/17 12:00 96.8 75 20 106/50 98 Room Air 01/07/17 09:00 74 115/63 01/07/17 08:00 97.0 74 20 115/63 100 Room Air 01/07/17 03:58 97.0 74 18 121/53 97 Room Air 01/07/17 00:00 97.4 71 18 97/55 95 Room Air 01/06/17 20:55 66 95/55 01/06/17 20:00 97.2 66 18 95/55 100 Room Air 01/06/17 18:04 70 103/50 01/06/17 16:53 97.3 69 19 82/38 100 Room Air Height (Feet): 4 Height (Inches): 11.00 Weight (Pounds): 142 Microbiology Date/Time Source Procedure Growth Status 01/04/17 15:15 Nasal Nares MRSA Culture - Final NO METHICILLIN RESISTANT STAPH AUREUS... Complete Laboratory Tests Test 01/07/17 05:50 White Blood Count 25.0 K/UL (4.8-10.8) #*H Red Blood Count 3.62 M/UL (4.20-5.40) L Hemoglobin 10.9 G/DL (12.0-16.0) L Hematocrit 31.4 % (37.0-47.0) L Mean Corpuscular Volume 87 FL (80-99) Mean Corpuscular Hemoglobin 30.1 PG (27.0-31.0) Mean Corpuscular Hemoglobin Concent 34.7 G/DL (32.0-36.0) Red Cell Distribution Width 14.8 % (11.6-14.8) Platelet Count 353 K/UL (150-450) Mean Platelet Volume 7.4 FL (6.5-10.1) Neutrophils (%) (Auto) % (45.0-75.0) Lymphocytes (%) (Auto) % (20.0-45.0) Monocytes (%) (Auto) % (1.0-10.0) Eosinophils (%) (Auto) % (0.0-3.0) Basophils (%) (Auto) % (0.0-2.0) Differential Total Cells Counted 100 Neutrophils % (Manual) 88 % (45-75) H Lymphocytes % (Manual) 5 % (20-45) L Monocytes % (Manual) 6 % (1-10) Eosinophils % (Manual) 1 % (0-3) Basophils % (Manual) 0 % (0-2) Band Neutrophils 0 % (0-8) Platelet Estimate Adequate Platelet Morphology Normal Poikilocytosis 1+ Beck Cells 1+ Sodium Level 131 mEQ/L (135-145) L Potassium Level 3.7 mEQ/L (3.4-4.9) Chloride Level 85 mEQ/L (98-107) L Carbon Dioxide Level 19 mEQ/L (20-30) L Anion Gap 27 (5-15) H Blood Urea Nitrogen 63 mg/dL (7-23) H Creatinine 7.7 mg/dL (0.5-0.9) H Estimat Glomerular Filtration Rate 5.3 mL/min (>60) Glucose Level 153 mg/dL (74-106) H Calcium Level 8.0 mg/dL (8.6-10.2) L Phosphorus Level 3.1 mg/dL (2.5-4.8) Current Medications Medications (Trade) Dose Ordered Sig/Germán Route PRN Reason Start Time Stop Time Status Last Admin Dose Admin Acetaminophen (Tylenol) 650 mg Q4H PRN ORAL mild pain/fever 01/03/17 23:15 02/02/17 23:14 Acetaminophen/ Codeine Phosphate (Tylenol #3) 1 tab TID ORAL 01/04/17 09:00 01/11/17 08:59 01/07/17 13:45 Acetaminophen/ Hydrocodone Bitart ([place] 7.5/325) 1 ea Q4H PRN ORAL Moderate Pain (Pain Scale 4-6) 01/03/17 23:15 01/10/17 23:14 01/06/17 05:33 Atorvastatin Calcium (Lipitor) 10 mg DAILY ORAL 01/04/17 09:00 02/03/17 08:59 01/07/17 09:29 Cefepime HCl 0.5 gm/Dextrose 55 ml @ 110 mls/hr Q24HRS IVPB 01/04/17 10:00 01/11/17 09:59 01/07/17 10:45 Cinacalcet (Sensipar) 30 mg DAILY ORAL 01/04/17 15:00 02/03/17 14:59 01/07/17 09:29 Dextrose (Dextrose 50%) STAT PRN IV Hypoglycemia 01/05/17 13:30 02/04/17 13:29 Diphenhydramine HCl (Benadryl) 25 mg Q6H ORAL 01/05/17 13:30 02/03/17 14:59 01/07/17 13:45 Epoetin Jorge (Procrit (for ESRD on dialysis)) 5,000 units FRI-FRI-FRI SUBQ 01/06/17 21:00 02/05/17 20:59 01/06/17 21:36 Furosemide (Lasix) 80 mg DAILY ORAL 01/04/17 09:00 02/03/17 08:59 01/07/17 09:29 Heparin Sodium (Porcine) (Heparin 5000 units/ml) 5,000 units EVERY 12 HOURS SUBQ 01/04/17 21:00 02/03/17 20:59 01/07/17 09:31 Insulin Aspart (NovoLOG) BEFORE MEALS AND HS SUBQ 01/05/17 16:30 02/04/17 16:29 01/07/17 11:49 Megestrol Acetate (Megace) 400 mg TWICE A DAY ORAL 01/05/17 15:00 02/04/17 14:59 01/07/17 09:29 Metoprolol Tartrate (Lopressor) 25 mg Q12HR ORAL 01/04/17 09:00 02/03/17 08:59 01/04/17 08:47 Mirtazapine (Remeron) 15 mg BEDTIME ORAL 01/05/17 21:00 02/04/17 20:59 01/06/17 21:34 Pantoprazole (Protonix) 40 mg DAILY ORAL 01/05/17 14:00 02/04/17 13:59 01/07/17 09:29 Polyethylene Glycol (Miralax) 17 gm DAILY PRN ORAL Constipation 01/03/17 23:15 02/02/17 23:14 01/07/17 09:33 Potassium Chloride 40 meq/ Sodium Chloride 1,020 ml @ 75 mls/hr [id number] IV 01/07/17 15:00 02/06/17 14:59 Sevelamer Carbonate (Renvela) 1,600 mg THREE TIMES A DAY ORAL 01/04/17 18:00 02/03/17 17:59 01/07/17 13:45 Vancomycin HCl (Vanco rx to dose) 1 ea DAILY PRN MISC Per rx protocol 01/03/17 23:15 02/02/17 23:14 Vitamin B Complex/ Vit C/Folic Acid (Nephrovite) 1 tab DAILY ORAL 01/04/17 09:00 02/03/17 08:59 01/07/17 09:30 ABDULKADIR CORDOVA Jan 07, 2017 15:12
[2017-01-07] MEDS: Norco 7.5mg/325mg tab ORAL PRN ×2 (15:22→20:52)
[2017-01-07] MEDS: metroNIDAZOLE 500mg 100 ML IVPB SCH ×2 (16:40→23:13)
[2017-01-07] MEDS ORDERED: Vancomycin 1gm/D5W 275ml IVPB ONE ×2 (21:00)
--- NOTE | 2017-01-08 08:31 | Consultation ---
DATE OF CONSULTATION: 01/07/2017 INFECTIOUS DISEASES CONSULT CONSULTING PHYSICIAN: Kota Downey M.D. ATTENDING PHYSICIAN: Jeffy Tiwari M.D. REASON FOR CONSULTATION: Leukocytosis, possible sepsis, and infected right leg wounds and ulcers. CHIEF COMPLAINT: The patient's chief complaint coming into the hospital is right leg pain, ulcers, wounds, and leukocytosis. HISTORY OF PRESENT ILLNESS: This is a very pleasant 66-year-old female, Tongan speaking, who presents to [facility] with leg pain. The patient was noted to have multiple wounds, especially most prominent in the right leg with necrotic wounds. The patient has significant leukocytosis and possible sepsis. The patient's white count was over 20,000. The patient is on vancomycin and cefepime. I am adding Flagyl for anaerobic coverage. Blood cultures are negative to date. Case was discussed with Dr. Tiwari. The patient has peritoneal dialysis and there is a possibility of plan for hemodialysis. MAR was noted. Orders were noted. Notes and records were reviewed. Case was discussed with RN. PAST MEDICAL HISTORY: The patient's past medical history includes the history of the following: The patient has a past medical history of what looks like peripheral vascular disease, anemia, end-stage renal disease, peritoneal dialysis, CAD, pacemaker, diabetes, and hypertension. She also comes in with failure to thrive. The patient likely has also past medical history of hyperlipidemia. MEDICATIONS: Upon reviewing the MAR, the patient is on the following medications. The patient is on Flagyl, Epogen, Remeron, NovoLog insulin, Megace, Protonix, Benadryl, heparin, Renvela, Sensipar, cefepime, atorvastatin, acetaminophen, furosemide, metoprolol, vancomycin, and Flagyl. Flagyl was just added today. and hydrocodone. Outside medications were noted and reconciled. The patient was also on atorvastatin. ALLERGIES: No known drug allergies. No antibiotic allergies. SOCIAL HISTORY: Negative for smoking, alcohol, or drug abuse. FAMILY HISTORY: Noncontributory. Negative for exposure to tuberculosis or cancer. REVIEW OF SYSTEMS: Constitutional: The patient has generalized weakness and fatigue. On my limited communication, no obvious head pain or neck pain. I also communicated with the nurse at the bedside who spoke Tongan. No obvious chest pain, neck pain, nausea, vomiting, or diarrhea. No Contreras. The patient appeared in peritoneal dialysis. Head And Neck: No thrush or dysphagia. Cardiac: No chest pain or palpitations. Also on pressors. Gastrointestinal: No nausea, vomiting, or diarrhea. Genitourinary: No Contreras. Peritoneal dialysis. Skin: The patient has multiple wounds, especially in the right leg. No itching. Neurologic: No seizures. She has generalized weakness and fatigue. No fever or chills. PHYSICAL EXAMINATION: VITAL SIGNS: Temperature is 96.8, pulse rate 75, respiratory rate 20, and blood pressure 106/50, and saturations 98%. GENERAL: Alert and responsive, in no acute distress. HEAD AND NECK: Oral exam, no thrush. Eye exam, no icterus. Normocephalic. No facial droop. No neck stiffness. No sinus tenderness. Neck is supple. HEART: Regular. No gallop or murmur. No friction rub. LUNGS: Clear bilaterally. No rhonchi or rales. ABDOMEN: Soft. Positive bowel sounds. Nontender. Abdominal wall shows no obvious cellulitis. MUSCULOSKELETAL: No effusions. SKIN: No other rash. EXTREMITIES: Legs, no obvious cellulitis. Extremity skin exam, the patient has multiple wounds in the extremities, but more pronounced. She has what looks like necrotic wounds in the right lower extremity. PERIPHERAL VASCULAR: No evidence of gangrene on the toes at this time. GENITOURINARY: She has peritoneal dialysis. No CVA tenderness. LINES: Line sites without phlebitis. NEUROLOGIC: Generalized weakness, responsive, nonfocal. LABORATORY DATA: Laboratory data is as follows: Creatinine is 7.7. White count 25.0 and hemoglobin 10.9. LFTs were noted. UA had too many to count white blood cells, many bacteria, and greater than 100,000 alpha hemolytic strep, which could be a contaminant. Blood cultures are negative to date. IMAGING STUDIES: Arterial studies were consistent with [id number] ischemia. Chest x-ray showed equivocal mild CHF and effusions. No consolidation mentioned. ASSESSMENT AND PLAN: 1. The patient has likely infected right leg wounds and ulcers with likely ischemia. The patient could be septic with elevated white count. The wounds are the most likely source of sepsis. The urine culture could be a contaminant with alpha hemolytic strep. The patient does have also failure to thrive. The patient is on vancomycin and cefepime. I am adding Flagyl. I discussed with the pharmacy about dosing of the antibiotics. Continue vancomycin, cefepime, and Flagyl. We really cannot get wound culture because of necrotic wounds and no drainage at this time and discussed with the nursing staff. The patient may need debridement of the wounds and Vascular Surgery workup is in progress. 2. Anemia. 3. Failure to thrive. 4. End-stage renal disease. 5. Peritoneal dialysis. 6. Coronary artery disease. 7. Pacemaker. 8. Diabetes. 9. Hypertension. 10. Hyperlipidemia. 11. Continue treatment per Dr. Tiwari and consultants. 12. Allergies are negative. 13. Social history is negative. 14. Family history is noncontributory. 15. MAR was noted. 16. Notes were reviewed. 17. Case was discussed with RN. 18. Case was discussed with Dr. Tiwari. 19. Skin care protocol. Kota Downey M.D. DR: KAYLA JOB#: [id number] CC:
[2017-01-08] MEDS ORDERED: Cefepime 2gm/D5W 110ml IV SCH ×2 (09:00)
[2017-01-08 13:11] LABS: CALCIUM 7.5 mg/dL (8.7-10.3); PTH INTACT 87 pg/mL (15-65)
[2017-01-09 07:45] LABS: OTHERS PATHOLOGIST COMMENT
--- NOTE | 2017-01-09 14:48 | Diagnostic Imaging Report ---
APPROVED REPORT CPT Code: 50404 Present Symptoms Comments: Pre-Operative Vein Measurements(cm) Cephalic Basilic Right LeftRight Left 0.20Upper Arm0.25Mid Upper Arm0.20 0.23Antecubital Fossa0.22Wrist The right and left cephalic and basilic veins were measured and evaluated for patency. BILATERAL UPPER EXTREMITY: Imaging reveals patency of the internal jugular, subclavian, axillary and brachial veins. Doppler indicates normal spontaneous flow within these venous segments, bilaterally.
--- NOTE | 2017-01-09 14:48 | Diagnostic Imaging Report ---
APPROVED REPORT CPT Code: 05689 Vascular Symptoms Comments: Altered LOC Doppler Spectral Velocity Analysis RightLeft arteries. The Doppler spectral flow analysis indicates the degree of stenosis is minimal (20%) in the common carotid artery, moderate (40% - 50%) in the internal carotid artery, and in the external carotid artery. VERTEBRAL- The vertebral artery is patent, without evidence of stenosis or steal. arteries. The Doppler spectral flow analysis indicates the degree of stenosis is minimal (20%) in the common carotid artery, moderate (40% - 50%) in the internal carotid artery, and in the external carotid artery. VERTEBRAL- The vertebral artery is patent, without evidence of stenosis or steal.
--- NOTE | 2017-01-09 14:52 | Diagnostic Imaging Report ---
APPROVED REPORT CPT Code: 28613 Present Symptoms Lower Extremity Pain: Bilateral BILATERAL: Imaging reveals a patent deep venous system bilaterally. There is no evidence of thrombus within the femoral, popliteal or tibial segments. The greater saphenous veins are also within normal limits. Doppler indicates normal spontaneous flow within these segments.
--- NOTE | 2017-01-09 16:01 | Discharge Summary ---
DATE OF ADMISSION: 01/03/2017 DATE OF DISCHARGE: 01/07/2017 PERTINENT HISTORY: The patient is a 66-year-old lady with insulin-dependent diabetes, end-stage renal disease, skin necrosis on the legs, comes with failure to thrive, and multiple wounds. There is a history of coronary artery disease, progressive weakness, bedridden state, and anorexia. PERTINENT PHYSICAL FINDINGS: See the dictated History and Physical. The patient is weak. Keeps her eyes closed during much of the exam. HEAD, EYES, EARS, NOSE, AND THROAT: Unremarkable. NECK: No adenopathy. LUNGS: Clear. HEART: Regular rhythm. ABDOMEN: Soft. There is a peritoneal dialysis catheter in good position. EXTREMITIES: No edema. There is absent pedal pulses. SKIN: Shows sacral decubitus stage II that is large in the buttock. She has a skin necrosis on the right leg and excoriations all over body and areas of skin necrosis on both legs. COURSE IN THE HOSPITAL: The patient presented with a white count of 25,000, BUN of 107, and hemoglobin of 7.4. She was very weak. She was continued on peritoneal dialysis and started on empiric antibiotics with vancomycin and cefepime. She was seen in consultation by Dr. Madera, vascular surgeon and by Dr. Fay, plastic surgeon. The patient was eating poorly and anorexic. She was uremic and had uremic pruritus and decline in her status. She continued to have leukocytosis, but no fever. She was given local wound care. It was felt that she very likely have calciphylaxis and would require detailed wound care and possibly debridement, angiography, and tertiary care at the discretion of the family. She was transferred to [facility]. FINAL DIAGNOSES: 1. Failure to thrive. 2. End-stage renal disease. 3. Areas of skin necrosis on the legs likely calciphylaxis. 4. Sacral decubitus ulcer. 5. Insulin-dependent diabetes. 6. Coronary artery disease with prior coronary artery bypass. 7. Cognitive impairment. 8. Bedridden state and failure to thrive. 9. Moderate protein-calorie malnutrition. 10. Peritoneal dialysis status. 11. History of cardiomyopathy and low blood pressure during this admission. 12. Leukocytosis likely due to skin lesions. 13. Secondary hyperparathyroidism. 14. Major depression. 15. Peripheral arterial disease legs. 16. Deep vein thrombosis in the femoral veins. PLAN: The patient will be discharged to [facility]. We will continue with current medication management. We will adjust all parameters as needed. Jeffy Tiwari M.D. DR: DELISA JOB#: [id number] CC:
== END 2017-01-07 23:30 | disposition short-term general hospital (02) | DRG 592 ==
LOC: EDBD 20:01 → EMR 21:48 → 4E 21:50 → EDBEDREQ 23:12
DX: L97.929 Non-pressure chronic ulcer of unspecified part of left lower leg with unspecified severity (principal); N18.6 End stage renal disease; L89.152 Pressure ulcer of sacral region, stage 2; I96 Gangrene, not elsewhere classified; E44.0 Moderate protein-calorie malnutrition; L89.310 Pressure ulcer of right buttock, unstageable; I82.419 Acute embolism and thrombosis of unspecified femoral vein; I12.0 Hypertensive chronic kidney disease with stage 5 chronic kidney disease or end stage renal disease; I42.9 Cardiomyopathy, unspecified; N25.81 Secondary hyperparathyroidism of renal origin; L97.919 Non-pressure chronic ulcer of unspecified part of right lower leg with unspecified severity; I73.9 Peripheral vascular disease, unspecified; Z99.2 Dependence on renal dialysis; I25.10 Atherosclerotic heart disease of native coronary artery without angina pectoris; Z95.1 Presence of aortocoronary bypass graft; Z79.4 Long term (current) use of insulin; R63.0 Anorexia; E83.59 Other disorders of calcium metabolism; F32.9 Major depressive disorder, single episode, unspecified; D64.9 Anemia, unspecified; E78.5 Hyperlipidemia, unspecified; E11.22 Type 2 diabetes mellitus with diabetic chronic kidney disease; R62.7 Adult failure to thrive
CPT/HCPCS: 36415; 71010; 80048; 80053; 80202; 81003; 82270; 82330; 82550; 82553; 82728; 82962; 83540; 83550; 83605; 83970; 84100; 84260; 84443; 84484; 85007; 85025; 85610; 85730; 86703; 86803; 87040; 87081; 87086; 87181; 87340; 87517; 93005; 93880; 93922; 93925; 93970; 99285; J1815